=== PATIENT | female | born 1990 | race Caucasian/White ===

== ENCOUNTER 2019-02-18 05:08 | Inpatient (IN) ==
[2019-02-18] MEDS ORDERED: STADOL IV PRN (05:14)
[2019-02-18] MEDS ORDERED: LR 500 ML IV ONE (05:14)
[2019-02-18] MEDS ORDERED: PEPCID IV PRN (05:14)
[2019-02-18] MEDS ORDERED: REGLAN PO ONE (05:14)
[2019-02-18] MEDS ORDERED: ZOFRAN IV PRN (05:14)
[2019-02-18] MEDS ORDERED: PEPCID PO ONE (05:14)
[2019-02-18] MEDS ORDERED: TYLENOL PO PRN (05:14)
[2019-02-18] MEDS ORDERED: KEFZOL 1 GM/D5W 1 GM/50 ML IVPB IV PRN (05:14)
[2019-02-18] MEDS ORDERED: PEPCID PO PRN (05:14)
[2019-02-18] MEDS ORDERED: SODIUM CHLORIDE 0.9% INJ SCH (05:15)
[2019-02-18] MEDS ORDERED: PITOCIN 30 UNITS/NS 30 UNIT/500 ML IV.SOLN IV SCH ×2 (05:15→19:00)
[2019-02-18] MEDS ORDERED: MINERAL OIL PO ONE (05:18)
[2019-02-18] MEDS ORDERED: XYLOCAINE-MPF 1% INJ ONE (05:18)
[2019-02-18] MEDS: LR 1,000 ML IV SCH ×3 (06:35→10:37)
[2019-02-18 07:10] LABS: BASO# 0.03 X1000 (0.0-0.2); BASO% 0.2 % (0.0-0.8); EOS# 0.36 X1000 (0.0-0.7); EOS% 2.2 % (0.0-10.0); HEMATOCRIT 33.8 % (37.0-47.0); HEMOGLOBIN 11.2 g/dL (12.0-16.0); IMM GRAN% 0.6 % (0.0-0.5); LYMPH# 3.78 X1000 (1.2-3.4); LYMPH% 22.8 % (20.5-51.1); MCH 30.4 PG (27-31); MCHC 33.1 g/dL (33-37); MCV 91.6 FL (81-99); MONO# 1.31 X1000 (0.11-0.59); MONO% 7.9 % (1.7-9.3); MPV 9.9 FL (7.4-10.4); NEUT# 10.99 X1000 (1.4-6.5); NEUT% 66.3 % (42.2-75.2); PLT 406 X1000 (130-400); RBC 3.69 XMIL (4.2-5.4); WBC 16.57 X1000 (4.8-10.8)
[2019-02-18 07:13] LABS: URINE SOURCE VOIDED
[2019-02-18 07:25] LABS: BILIRUBIN URINE NEGATIVE (NEGATIVE); BLOOD URINE NEGATIVE (NEGATIVE); GLUCOSE URINE NEGATIVE (NEGATIVE); KETONE URINE TRACE mg/dL (NEGATIVE); SP GRAVITY URINE 1.005
[2019-02-18 07:26] LABS: CLARITY CLEAR (CLEAR); COLOR YELLOW; LEUKOCYTES URINE TRACE (NEGATIVE); NITRITE URINE NEGATIVE (NEGATIVE); PROTEIN URINE NEGATIVE (NEGATIVE); UR AMPHETAMINES QUAL NONE DETECTED (NONE DETECT); UR BARBITUATES QUAL NONE DETECTED (NONE DETECT); UR BENZODIAZEPIN QUAL NONE DETECTED (NONE DETECT); UR CANNABINOIDS QUAL NONE DETECTED (NONE DETECT); UR COCAINE QUAL NONE DETECTED (NONE DETECT); UR METHADONE QUAL NONE DETECTED (NONE DETECT); UR METHAMPHETAMINE QUAL NONE DETECTED (NONE DETECT); UR OPIATES QUAL NONE DETECTED (NONE DETECT); UR OXYCODONE QUAL NONE DETECTED (NONE DETECT); UR PCP QUAL NONE DETECTED (NONE DETECT); UR PROPOXYPHENE QUAL NONE DETECTED (NONE DETECT); UR TCA QUAL NONE DETECTED (NONE DETECT); UROBILINOGEN URINE NORMAL
[2019-02-18] MEDS ORDERED: NAROPIN 0.2% INJ ONE (07:45)
[2019-02-18] MEDS ORDERED: FENTANYL-BUPIV-NS 2 MCG-0.1% 200 ML EPIDURAL SCH (08:00)
--- NOTE | 2019-02-18 08:04 | H&P REVIEW ---
H&P Update Document any changes: SVE soft, 2-3/[id number]%/-2. left deviated -2 station BOWI
--- NOTE | 2019-02-18 08:11 | OB/GYN PROGRESS NOTE ---
Progress Note OB - . Patient Problems: Current Active Problems Problem Status Onset Intrauterine Acute OB Progress Note: Vital Signs - 24 hr 02/18/19 07:05 Temperature 97.5 F L Pulse Rate 80 Respiratory Rate 18 Blood Pressure 112/70 O2 Sat by Pulse Oximetry 100 Laboratory Results - last 24 hr 02/18/19 02/18/19 02/18/19 05:08 05:08 06:25 WBC RBC Hgb Hct MCV MCH MCHC RDW Std Deviation Plt Count MPV Immature Gran % (Auto) Neut % (Auto) Lymph % (Auto) [place] % (Auto) Eos % (Auto) Baso % (Auto) Immature Gran # (Auto) Neut # (Auto) Lymph # (Auto) [place] # (Auto) Eos # (Auto) Baso # (Auto) Urine Source VOIDED Urine Color YELLOW Urine Clarity CLEAR Urine pH 7.0 Ur Specific [place] 1.005 Urine Protein NEGATIVE Urine Ketones TRACE Urine Blood NEGATIVE Urine Nitrite NEGATIVE Urine Bilirubin NEGATIVE Urine Urobilinogen NORMAL Urine WBC TRACE A Urine Glucose NEGATIVE Urine Opiates Screen NONE DETECTED Ur Oxycodone Screen NONE DETECTED Urine Methadone Screen NONE DETECTED U Propoxyphene Qual NONE DETECTED Ur Barbituates Screen NONE DETECTED Ur Tricyclics Screen NONE DETECTED Ur Phencyclidine Scrn NONE DETECTED Ur Amphetamines Screen NONE DETECTED U Methamphetamines Scrn NONE DETECTED U Benzodiazepines Scrn NONE DETECTED Urine Cocaine Screen NONE DETECTED U Cannabinoids Screen NONE DETECTED RPR NON-REACTIVE 02/18/19 06:25 WBC 16.57 H RBC 3.69 L Hgb 11.2 L Hct 33.8 L MCV 91.6 MCH 30.4 MCHC 33.1 RDW Std Deviation 13.0 Plt Count 406 H MPV 9.9 Immature Gran % (Auto) 0.6 H Neut % (Auto) 66.3 Lymph % (Auto) 22.8 [place] % (Auto) 7.9 Eos % (Auto) 2.2 Baso % (Auto) 0.2 Immature Gran # (Auto) 0.10 H Neut # (Auto) 10.99 H Lymph # (Auto) 3.78 H [place] # (Auto) 1.31 H Eos # (Auto) 0.36 Baso # (Auto) 0.03 Urine Source Urine Color Urine Clarity Urine pH Ur Specific [place] Urine Protein Urine Ketones Urine Blood Urine Nitrite Urine Bilirubin Urine Urobilinogen Urine WBC Urine Glucose Urine Opiates Screen Ur Oxycodone Screen Urine Methadone Screen U Propoxyphene Qual Ur Barbituates Screen Ur Tricyclics Screen Ur Phencyclidine Scrn Ur Amphetamines Screen U Methamphetamines Scrn U Benzodiazepines Scrn Urine Cocaine Screen U Cannabinoids Screen RPR Healthy GBS-NEG PCN-allergic 28 yo WMF EDC 6-18 for elective 39 wk IOL with favorable cx soft, 2-3 cm, parous 50%, left deviated -2 BOWI. Recent ROS is negative but for ongoing GERD self-Rx Rolaids 7/day. Pelvic proven to 9 pounds with MLE 1st and 3rd delivery, the third with persistent OP, VAVD and extension to 4th degree by her historu and w/o apparent complications. FHRT category I with spontaneous irregular 2-3 min mild UCs A/P Begin low-dose augmentation as scheduled SAMMY as desired H/O rapid labors Care plan reviewed and agreeable with pt and spouse.
[2019-02-18] MEDS ORDERED: BENADRYL IV PRN (18:48)
[2019-02-18] MEDS ORDERED: MINERAL OIL PO PRN (18:48)
[2019-02-18] MEDS ORDERED: AMBIEN PO PRN (18:48)
[2019-02-18] MEDS ORDERED: CYTOTEC PO PRN (18:48)
[2019-02-18] MEDS ORDERED: BOOSTRIX VACCINE IM ONE (18:48)
[2019-02-18] MEDS ORDERED: PERI MEDS (DERMOPLAST/NUPERCAINAL/TUCKS) MISC PRN (18:48)
[2019-02-18] MEDS ORDERED: M-M-R II VACCINE SUBQ ONE (18:48)
[2019-02-18] MEDS ORDERED: ATARAX PO PRN (18:48)
[2019-02-18] MEDS ORDERED: HYDROXYZINE IM PRN (18:48)
[2019-02-18] MEDS ORDERED: PITOCIN IM PRN (18:48)
[2019-02-18] MEDS ORDERED: XYLOCAINE-MPF 1% INJ PRN (18:48)
[2019-02-18] MEDS ORDERED: BENADRYL PO PRN (18:48)
[2019-02-18] MEDS ORDERED: PITOCIN 20 UNITS/NS 20 UNITS/1,000 ML IV.SOLN IV SCH (19:15)
--- NOTE | 2019-02-18 20:19 | OPERATIVE NOTE ---
PROCEDURE DATE: 02/18/2019 DELIVERY NOTE PREOPERATIVE DIAGNOSIS: 39 week with history of macrosomia. POSTOPERATIVE DIAGNOSIS: 1. 39 week , delivered without complications. 2. History of macrosomia. 3. Viable male . PROCEDURE: 1. Spontaneous vaginal delivery. 2. Repair of right labial laceration. ATTENDANT: Dr. Kong. COMPLICATIONS: None. ESTIMATED BLOOD LOSS: 250 mL. PROPHYLAXIS: None. FINDINGS: Viable 8 pound 10 ounce white male from ROSA position at 1817 hours, with loose nuchal cord x1, reduced on the perineum. Placenta and 3 vessel cord were delivered intact. Cervix, upper vagina, and perineum were free of lacerations. A right labial tear extended from the upper margin of the labium minus on the right to the introitus, without involvement of the urethral orifice, with minimal oozing, thus requiring repair. Placenta delivered at 1824 hours and revealed small areas of calcification and infarction. PROCEDURE: Lisa was admitted for 39 week 1 day induction with a history of macrosomia, as well as recent delivery with vacuum extraction of an occiput posterior infant and midline episiotomy extending to a fourth degree tear. She progressed normally in labor with low- dose Pitocin, undergoing clear artificial rupture of membranes at 1336 hours at about 4 cm. After reaching complete dilation and 2+ station, 2nd stage progressed promptly to a controlled vaginal delivery. After controlled delivery of the vertex and reduction of the nuchal cord, the anterior shoulder was gently guided with posterior traction, followed by controlled delivery of the posterior shoulder. Remainder of the child was also delivered in an atraumatic fashion and the child placed on the maternal abdomen for drying, warming, and initial bonding. After 1 minute, the cord was doubly clamped. The cord was divided by her , Alo. Infusion of Pitocin 30 units per 500 mL was begun at 500 mL an hour. Placenta was delivered intact with gentle traction. Bimanual massage confirmed good tone of the uterus. Cervix, vagina, vulva, and perineum were examined. Right labial tear was infiltrated with 1% lidocaine and closed with running unlocked 3-0 Vicryl using an SH needle with good approximation and hemostasis. DISPOSITION: At this dictation, Lisa and her son are doing well, bonding normally, without immediate delivery complications. cc: Kris Aguero III, MD [facility]
[2019-02-18] MEDS: PERICOLACE PO SCH (20:41)
[2019-02-19 05:56] LABS: BASO# 0.03 X1000 (0.0-0.2); BASO% 0.2 % (0.0-0.8); EOS# 0.19 X1000 (0.0-0.7); HEMATOCRIT 34.6 % (37.0-47.0); HEMOGLOBIN 11.2 g/dL (12.0-16.0); IMM GRAN# 0.07 X1000 (0.0-0.04); IMM GRAN% 0.4 % (0.0-0.5); LYMPH# 3.88 X1000 (1.2-3.4); LYMPH% 20.6 % (20.5-51.1); MCH 29.8 PG (27-31); MCHC 32.4 g/dL (33-37); MONO# 1.06 X1000 (0.11-0.59); MONO% 5.6 % (1.7-9.3); MPV 9.7 FL (7.4-10.4); NEUT# 13.65 X1000 (1.4-6.5); NEUT% 72.2 % (42.2-75.2); PLT 384 X1000 (130-400); RBC 3.76 XMIL (4.2-5.4); RDW 13.2 % (11.5-14.5); WBC 18.88 X1000 (4.8-10.8)
--- NOTE | 2019-02-19 06:48 | OB/GYN PROGRESS NOTE ---
Progress Note OB - . Patient Problems: Current Active Problems Problem Status Onset with 39 completed weeks gestation Acute Encounter for induction of labor Acute History of macrosomia in infant in prior , currently in third trimester Acute Intrauterine Acute OB Progress Note: Vital Signs - 24 hr 02/18/19 07:05 02/18/19 10:57 02/18/19 11:00 Temperature 97.5 F L 97.0 F L Pulse Rate 80 79 93 H Respiratory Rate 18 16 16 Blood Pressure 112/70 108/64 103/61 Blood Pressure [Left Arm] O2 Sat by Pulse Oximetry 100 100 02/18/19 18:40 02/18/19 18:50 02/18/19 18:55 Temperature 96.5 F L Pulse Rate 85 95 H Respiratory Rate 18 18 Blood Pressure 115/65 Blood Pressure [Left Arm] 116/58 115/65 O2 Sat by Pulse Oximetry 98 02/18/19 18:59 02/18/19 19:10 02/18/19 19:20 Temperature Pulse Rate 85 89 82 Respiratory Rate 18 18 16 Blood Pressure Blood Pressure [Left Arm] 118/62 119/62 122/57 O2 Sat by Pulse Oximetry 98 99 100 02/18/19 19:30 02/18/19 19:34 02/18/19 20:00 Temperature 96.3 F L Pulse Rate 80 85 105 H Respiratory Rate 16 16 Blood Pressure 131/71 Blood Pressure [Left Arm] 118/59 O2 Sat by Pulse Oximetry 100 100 99 02/18/19 21:00 02/19/19 05:26 Temperature 96.5 F L Pulse Rate 98 H 95 H Respiratory Rate 18 18 Blood Pressure 126/76 121/90 Blood Pressure [Left Arm] O2 Sat by Pulse Oximetry 100 100 Laboratory Results - last 24 hr 02/18/19 02/18/19 02/18/19 05:08 05:08 06:25 WBC RBC Hgb Hct MCV MCH MCHC RDW Std Deviation Plt Count MPV Immature Gran % (Auto) Neut % (Auto) Lymph % (Auto) [place] % (Auto) Eos % (Auto) Baso % (Auto) Immature Gran # (Auto) Neut # (Auto) Lymph # (Auto) [place] # (Auto) Eos # (Auto) Baso # (Auto) Urine Source VOIDED Urine Color YELLOW Urine Clarity CLEAR Urine pH 7.0 Ur Specific [place] 1.005 Urine Protein NEGATIVE Urine Ketones TRACE Urine Blood NEGATIVE Urine Nitrite NEGATIVE Urine Bilirubin NEGATIVE Urine Urobilinogen NORMAL Urine WBC TRACE A Urine Glucose NEGATIVE Urine Opiates Screen NONE DETECTED Ur Oxycodone Screen NONE DETECTED Urine Methadone Screen NONE DETECTED U Propoxyphene Qual NONE DETECTED Ur Barbituates Screen NONE DETECTED Ur Tricyclics Screen NONE DETECTED Ur Phencyclidine Scrn NONE DETECTED Ur Amphetamines Screen NONE DETECTED U Methamphetamines Scrn NONE DETECTED U Benzodiazepines Scrn NONE DETECTED Urine Cocaine Screen NONE DETECTED U Cannabinoids Screen NONE DETECTED RPR NON-REACTIVE 02/18/19 02/19/19 06:25 05:36 WBC 16.57 H 18.88 H RBC 3.69 L 3.76 L Hgb 11.2 L 11.2 L Hct 33.8 L 34.6 L MCV 91.6 92.0 MCH 30.4 29.8 MCHC 33.1 32.4 L RDW Std Deviation 13.0 13.2 Plt Count 406 H 384 MPV 9.9 9.7 Immature Gran % (Auto) 0.6 H 0.4 Neut % (Auto) 66.3 72.2 Lymph % (Auto) 22.8 20.6 [place] % (Auto) 7.9 5.6 Eos % (Auto) 2.2 1.0 Baso % (Auto) 0.2 0.2 Immature Gran # (Auto) 0.10 H 0.07 H Neut # (Auto) 10.99 H 13.65 H Lymph # (Auto) 3.78 H 3.88 H [place] # (Auto) 1.31 H 1.06 H Eos # (Auto) 0.36 0.19 Baso # (Auto) 0.03 0.03 Urine Source Urine Color Urine Clarity Urine pH Ur Specific [place] Urine Protein Urine Ketones Urine Blood Urine Nitrite Urine Bilirubin Urine Urobilinogen Urine WBC Urine Glucose Urine Opiates Screen Ur Oxycodone Screen Urine Methadone Screen U Propoxyphene Qual Ur Barbituates Screen Ur Tricyclics Screen Ur Phencyclidine Scrn Ur Amphetamines Screen U Methamphetamines Scrn U Benzodiazepines Scrn Urine Cocaine Screen U Cannabinoids Screen RPR No complaints, denies PIH/Orthostatic symptoms. A&O NAD CTAB RRR S/ND/NT Fundus firm Normal lochia 1+ bilateral ROGER PPD 1 s/p doing well - Ambulate - post op care - anticipate D/C home Saturday.
[2019-02-19] MEDS: MOTRIN PO PRN ×3 (08:01→23:31)
[2019-02-19] MEDS ORDERED: NEOSPORIN OINTMENT PACKET TOP ONE (11:52)
[2019-02-19] MEDS: PERICOLACE PO SCH (23:31)
--- NOTE | 2019-02-20 08:56 | OB/GYN PROGRESS NOTE ---
Progress Note OB - . Patient Problems: Current Active Problems Problem Status Onset with 39 completed weeks gestation Acute Encounter for induction of labor Acute History of macrosomia in infant in prior , currently in third trimester Acute Intrauterine Acute OB Progress Note: Vital Signs - 24 hr 02/19/19 12:03 02/19/19 16:01 02/19/19 23:35 Temperature 96.9 F L 98.1 F 97.2 F L Pulse Rate 98 H 100 H 84 Respiratory Rate 18 18 18 Blood Pressure 110/67 118/72 110/73 O2 Sat by Pulse Oximetry 100 99 100 28 yo G5 now [id number] WMF doing well PPD#2 following IOL and of 8"10 oz male. Ob PP ROS is negative. She receives relief with Ibuprofen only. Exam VSS AF as above NAD HEENT Nl Chest Nl resp effort CVS RRR Abd soft Fundus Firm, nontender Ext no CCE A/P as above I reviewed full discharge instructions, limitations, medications, 6 week follow up vasectomy BC, and early return for heavy lochia, fever, unrelieved pain, breast pain, or depressed mood, eg.
[2019-02-20] MEDS: MOTRIN PO PRN (09:05)
[2019-02-20 09:20] VITALS: BP 113/75
--- NOTE | 2019-02-20 21:49 | DISCHARGE SUMMARY ---
ADMISSION DATE: 02/18/2019 DISCHARGE DATE: 02/20/2019 ADMITTING DIAGNOSIS: Induction of labor, elective, 39 weeks. FINAL DISCHARGE DIAGNOSIS: 1. Thirty-nine week , delivered, without complication. 2. History of macrosomia and 4th degree perineal tear. 3. Viable male . DISCHARGE MEDICATIONS: vitamins once daily, ibuprofen 800 mg every 8 hours as needed for pain dispense 30 with 2 refills. HPI: Lisa is a healthy now 5, para 4-0-1-4 white female presenting at 39 weeks for elective induction of labor due to history of macrosomia and 4th degree perineal laceration. course was unremarkable including group B strep negative. Full details of the past medical, social, family history and course were listed on the record. ALLERGIES: Include codeine and penicillin. MEDICATIONS: Include only vitamins. ADMITTING LABORATORY: Included hemoglobin 11.2. Clear urine, UDS and RPR negative. HOSPITAL COURSE: Lisa responded to Pitocin induction with initial examination 3/50%/ -2. She underwent clear artificial rupture of membranes at approximately 4 cm and progressed promptly thereafter to a normal spontaneous vaginal delivery of an 8 pound 10 ounce male infant that evening. She experienced a right labial periurethral tear repaired with running unlocked 3-0 Vicryl under local anesthesia augmentation of continuous lumbar epidural. DISPOSITION: At this dictation Lisa is doing well. Her course and discharge examination are unremarkable. hemoglobin is unchanged at 11.2. Her is doing well. I discussed full discharge limitations, precautions, medications, diet, vasectomy control, barrier contraception until vasectomy is proven and return to the office to see Dr. Aguero within 6 weeks or prior to that time for any difficulties such as heavy vaginal bleeding, fever, unresolved pain, increasing peripheral edema, breast redness and swelling or symptoms of depressed mood. She and her verbalized good understanding of the precautions given and plan to return as advised. cc: MD KENJI Saha III
== END 2019-02-20 11:30 | disposition home or self-care (01) | DRG 807 ==
LOC: P.LD 05:08
PROVIDERS: ADMIT Obstetrics & Gynecology; ATTEND Obstetrics & Gynecology
CPT/HCPCS: 59025; 80104; 80301; 80305; 81003; 85025; 86592; A9270; G0431; G0434; G0477; J2590; J2795; J7120